=== PATIENT | male | born 1995 | race Two or more races ===

== ENCOUNTER 2022-11-29 17:44 | Inpatient (IN) | payer OTHER ==
[2022-11-29 22:24] VITALS: BMI 21.2
[2022-11-30] MEDS ORDERED: LOPERAMIDE HCL 2 MG CAPSULE PO PRN (00:24)
[2022-11-30] MEDS ORDERED: MAGNESIUM HYDROX 2400MG/30ML ORAL SUSPENSION 30 ML CUP PO PRN (00:24)
[2022-11-30] MEDS ORDERED: P-EPHED 60MG/TRIPROLIDI 2.5MG TABLET PO PRN (00:24)
[2022-11-30] MEDS ORDERED: DICYCLOMINE HCL 10 MG CAPSULE PO PRN (00:24)
[2022-11-30] MEDS ORDERED: NALOXONE HCL 0.4 MG/ML VIAL IM PRN (00:24)
[2022-11-30] MEDS ORDERED: NALOXONE HCL (KLOXXADO) 8 MG SPRAY NS PRN (00:24)
[2022-11-30] MEDS ORDERED: BISMUTH SUBSALICYLATE 524 MG/30 ML PO PRN (00:24)
[2022-11-30] MEDS ORDERED: MAG HYDROX/AL HYDROX/SIMETH 30 ML UNIT-DOSE CUP PO PRN (00:24)
[2022-11-30] MEDS ORDERED: ONDANSETRON *ODT* 4 MG TABLET SL PRN (00:24)
[2022-11-30] MEDS ORDERED: ACETAMINOPHEN 325 MG TABLET (FP) PO PRN (00:24)
[2022-11-30] MEDS ORDERED: POLYETHYLENE GLYCOL (HEALTHYLAX) 3350 17 GM PACKET PO PRN (00:24)
[2022-11-30] MEDS ORDERED: IBUPROFEN 600 MG TABLET (FP) PO PRN (00:24)
[2022-11-30] MEDS ORDERED: BENZOCAINE/MENTHOL (CHLORASEPTIC ) LOZENGE MM PRN (00:24)
[2022-11-30] MEDS ORDERED: NICOTINE POLACRILEX 2 MG GUM BUC PRN (00:24)
[2022-11-30] MEDS ORDERED: IBUPROFEN 400 MG TABLET (FP) PO PRN (00:24)
[2022-11-30] MEDS ORDERED: BENZONATATE 200 MG CAPSULE PO PRN (00:24)
[2022-11-30] MEDS ORDERED: guaiFENesin 600 MG TABLET.ER (FP) PO PRN (00:24)
[2022-11-30] MEDS ORDERED: METOPROLOL TARTRATE 25 MG TABLET (FP) PO ONE ×2 (02:53→03:00)
[2022-11-30] MEDS: PRENATAL VITAMINS W/ FOLIC ACID TABLET (FP) PO SCH (10:31)
[2022-11-30] MEDS: hydrOXYzine PAMOATE 25 MG CAPSULE (FP) PO PRN ×2 (12:27→19:36)
[2022-11-30] MEDS: METHOCARBAMOL 500 MG TABLET PO PRN ×2 (12:27→19:36)
[2022-11-30] MEDS ORDERED: THIAMINE HCL 100 MG TABLET (FP) PO SCH (22:00)
[2022-11-30] MEDS ORDERED: MELATONIN 5 MG TABLETS PO SCH (22:00)
[2022-12-01] MEDS: PRENATAL VITAMINS W/ FOLIC ACID TABLET (FP) PO SCH (09:34)
[2022-12-01 11:53] LABS: CHLORIDE 107 mmol/L (98-107); HEMATOCRIT 40.2 % (35.4-49); HEMOGLOBIN 13.5 GM/dL (11.7-16.9); MCH 28.8 pg (25.7-33.7); MCHC 33.6 g/dl (32.0-35.9); MEAN CELL VOLUME 85.8 fl (80-96); PLATELET COUNT 500 10^3/uL (134-434); RBC 4.69 M/mm3 (4.00-5.60); RDW 15.3 % (11.9-15.9); SODIUM 139 mmol/L (136-145); WHITE BLOOD COUNT 8.8 K/mm3 (4.0-10.0)
[2022-12-01 11:56] LABS: CALCIUM 8.6 mg/dL (8.5-10.1)
[2022-12-01 11:57] LABS: ALBUMIN 3.5 g/dl (3.4-5.0); BLOOD UREA NITROGEN 14.6 mg/dL (7-18); CO2 28 mmol/L (21-32); GLUCOSE,RANDOM 89 mg/dL (74-106)
[2022-12-01 12:00] LABS: CREATININE 1.1 mg/dL (0.55-1.3); SGOT/AST 10 U/L (15-37); SGPT/ALT 24 U/L (13-61)
[2022-12-01 12:02] LABS: BILIRUBIN,TOTAL 0.4 mg/dL (0.2-1); TOT PROT 6.7 g/dl (6.4-8.2)
[2022-12-01 12:03] LABS: ALK PHOS 81 U/L (45-117); ANION GAP 4 MMOL/L (8-16); POTASSIUM 7.3 mmol/L (3.5-5.1)
[2022-12-01 13:21] VITALS: BP 118/75; PULSE 86; RESP 17; TEMP 98.6
== END 2022-12-02 00:55 | disposition left against medical advice (07) | DRG 770 ==
LOC: YASAS 17:44 → UNDOADMIN 11-30 01:58 → Y3N 11-30 01:58 → UNDODISIN 12-02 00:55
PROVIDERS: ADMIT Allergy & Immunology; ATTEND Surgery
PROC: HZ2ZZZZ Detoxification Services for Substance Abuse Treatment (ICD-10-PCS; principal; 2022-11-30)
DX: F10.10 Alcohol abuse, uncomplicated (principal); F11.10 Opioid abuse, uncomplicated; F14.10 Cocaine abuse, uncomplicated; F17.210 Nicotine dependence, cigarettes, uncomplicated; E87.5 Hyperkalemia
CPT/HCPCS: 36415; 80053; 85027; 86780; 87635; 93005; 93010

== ENCOUNTER 2022-12-01 14:26 | Emergency (ER) | payer OTHER ==
[2022-12-01 15:18] VITALS: BMI 21.2
[2022-12-01 16:00] LABS: BASO % 0.6 % (0-2.0); HEMATOCRIT 42.5 % (35.4-49); HEMOGLOBIN 14.3 GM/dL (11.7-16.9); LYMPH % 28.8 % (8-40); MCH 28.8 pg (25.7-33.7); MCHC 33.6 g/dl (32.0-35.9); MEAN CELL VOLUME 85.5 fl (80-96); MEAN PLT VOLUME 7.5 fl (7.5-11.1); MONO % 6.6 % (3.8-10.2); PLATELET COUNT 431 10^3/uL (134-434); RBC 4.97 M/mm3 (4.00-5.60); RDW 15.4 % (11.9-15.9)
[2022-12-01 16:16] LABS: POTASSIUM 4.9 mmol/L (3.5-5.1)
[2022-12-01 16:18] LABS: BLOOD UREA NITROGEN 11.5 mg/dL (7-18)
[2022-12-01 16:39] VITALS: BP 120/75; PULSE 92; RESP 18; TEMP 98
== END 2022-12-01 16:44 | disposition home or self-care (01) ==
LOC: JER 14:26
DX: R79.89 Other specified abnormal findings of blood chemistry (principal)
CPT/HCPCS: 36415; 80048; 83690; 85025; 93005; 93010; 99284-25